=== PATIENT | male | born 1975 | race Caucasian/White ===

== ENCOUNTER 2017-08-23 05:58 | Day surgery (SDC) | payer BC ==
[2017-08-20 11:29] VITALS: BMI 28.3
[2017-08-23] MEDS ORDERED: DEXAMETHASONE SOD PHOSPHATE/PF 10 MG/ML SDV ONE (06:52)
[2017-08-23] MEDS ORDERED: MIDAZOLAM HCL 2 MG/2 ML SINGLE DOSE VIAL ONE ×2 (06:53→07:59)
[2017-08-23] MEDS ORDERED: ROPIVACAINE HCL 0.5% 30ML VIAL ONE (06:53)
[2017-08-23] MEDS ORDERED: EPINEPHrine 1:1,000 1 MG/1 ML - 30ML VIAL (INJECTION) ONE (07:16)
[2017-08-23] MEDS ORDERED: PROPOFOL 20 ML ONE ×3 (07:33)
[2017-08-23] MEDS ORDERED: ONDANSETRON 4 MG/2 ML VIAL ONE (07:50)
[2017-08-23] MEDS ORDERED: DEXAMETHASONE SOD PHOSPHATE 4 MG/1 ML VIAL ONE (07:50)
[2017-08-23] MEDS ORDERED: ceFAZolin SODIUM 1 GM VIAL ONE (07:50)
[2017-08-23] MEDS ORDERED: ONDANSETRON 4 MG/2 ML VIAL IVPUSH PRN (08:55)
[2017-08-23] MEDS ORDERED: oxyCODONE HCL 5 MG TABLET PO PRN ×2 (08:55)
[2017-08-23] MEDS ORDERED: PROMETHAZINE HCL 25 MG/1 ML VIAL IVPUSH PRN (08:55)
[2017-08-23] MEDS ORDERED: LACTATED RINGERS SOLUTION 1,000 ML IV SCH (09:00)
[2017-08-23 10:34] VITALS: BP 110/68; PULSE 64; TEMP 98
--- NOTE | 2017-08-25 10:34 | OP ---
DATE OF OPERATION: 08/23/2017 SURGEON: Odalis Whitten MD FUELER: MARQUISE Velazquez PREOPERATIVE DIAGNOSES: 1. Left shoulder impingement syndrome. 2. Left shoulder acromioclavicular degenerative joint disease. 3. Left shoulder superior labral tear with anterior and posterior synovitis. POSTOPERATIVE DIAGNOSES: 1. Left shoulder impingement syndrome. 2. Left shoulder acromioclavicular degenerative joint disease. 3. Left shoulder superior labral tear with anterior and posterior synovitis. PROCEDURE: 1. Left shoulder arthroscopy with subacromial decompression. 2. Left shoulder arthroscopy with resection of subclavicle acromioclavicular joint. 3. Left shoulder arthroscopy with debridement. CPT CODES: 04148, 46123, [id number] FINDINGS: 1. Superior labral tear, [id number], type 1. 2. Posterior labral fraying. 3. Thickened scar tissue, glenohumeral joint. 4. Glenohumeral synovitis. 5. Posterior labral fraying. 6. Anterior grade 2 to 3 cartilage injury, glenoid and humerus. 7. Partial tearing, anterior labrum. 8. Thickened scar tissue, subacromial space. 9. Type 2 acromion, anterior and lateral spurring. 10. Inferior bursa of the clavicle with acromioclavicular degenerative joint disease. PROCEDURE: Informed consent was obtained. The patient was taken to the operating room where the upper extremity was prepped and draped in a sterile fashion. Scalene block was performed by Anesthesia. Manipulation under anesthesia allowed for full range of motion. Using standard arthroscopic technique, a posterior incision portal was made, which allowed for introduction of the camera into the glenohumeral joint. Under direct visualization, an anterior incision and portal was made. Extensive and thickened synovitis was debrided. Fraying of the labrum was debrided and superior labrum from anterior to posterior was identified with all loose areas debrided. Any labral tears were taken to stable rim including identified SLAP lesions. All loose cartilage was debrided. Rotator cuff was identified and evaluated as were the subacromial and bursal surfaces. The posterior incision portal was redirected to the subacromial space, where lateral incision and portal was made. Excessive and thickened synovium was removed throughout the subacromial space including the anterior scar tissue, posterior bursa and lateral bursa. The type 2 acromion was converted to a flattened type 1, removing the anterior and lateral spurring. Accessory portal was made at the acromioclavicular joint, removing the inferior spur of the distal clavicle at the acromioclavicular joint, allowing for a distal clavicle partial resection. The shoulder was once again reexamined; all impingement was removed. The shoulder was drained. A single suture as placed on all portals and a sterile dressing was placed. The patient was transferred to the recovery room without complication. ODALIS WHITTEN M.D. [id number]
== END 2017-08-23 10:15 | disposition home or self-care (01) ==
LOC: FASU 05:58
PROVIDERS: ATTEND Orthopaedic Surgery
PROC: 0RBK4ZZ Excision of Left Shoulder Joint, Percutaneous Endoscopic Approach (ICD-10-PCS; 2017-08-23)
PROC: 0PBB4ZZ Excision of Left Clavicle, Percutaneous Endoscopic Approach (ICD-10-PCS; principal; 2017-08-23 08:06)
DX: M75.42 Impingement syndrome of left shoulder (principal); M19.012 Primary osteoarthritis, left shoulder; M24.112 Other articular cartilage disorders, left shoulder; M65.812 Other synovitis and tenosynovitis, left shoulder; S43.432A Superior glenoid labrum lesion of left shoulder, initial encounter; X58.XXXA Exposure to other specified factors, initial encounter; Y93.9 Activity, unspecified; Y92.9 Unspecified place or not applicable
CPT/HCPCS: 94760